=== PATIENT | female | born 1975 | race Caucasian/White ===

== ENCOUNTER 2016-11-10 13:58 | Emergency (ER) | payer MEDICAID ==
[~2016-11-10] VITALS: Ht 162.6 cm; Wt 94.8 kg
[2016-11-10 17:45] VITALS: BP 136/94
== END 2016-11-10 17:45 | disposition home or self-care (01) ==
LOC: ED 13:58
DX: B34.9 Viral infection, unspecified (principal)

== ENCOUNTER 2017-02-07 18:28 | Emergency (ER) | payer SELFPAY ==
[~2017-02-07] VITALS: Ht 162.6 cm; Wt 94.8 kg
[2017-02-07 21:10] VITALS: BP 137/90
== END 2017-02-07 21:10 | disposition home or self-care (01) ==
LOC: ED 18:28
DX: K21.9 Gastro-esophageal reflux disease without esophagitis (principal)

== ENCOUNTER 2018-10-14 12:37 | Emergency (ER) | payer MEDICAID ==
[~2018-10-14] VITALS: Ht 162.6 cm; Wt 95.3 kg
[2018-10-14 12:44] VITALS: Ht 162.6 cm; Wt 95.3 kg
[2018-10-14 16:24] LABS: BASOPHIL % 0 % (0-2); PLATELET COUNT 204 x10^3mcL (130-400); RED CELL DISTRIBUTION WIDTH 13.9 % (11.5-14.5)
[2018-10-14 16:41] LABS: CALCIUM 8.3 mg/dL (8.5-10.1); CARBON DIOXIDE 23.8 mmol/L (21-32); CHLORIDE SERUM 104 mmol/L (98-107); CREATININE SERUM 0.7 mg/dL (0.6-1.0); GFR1 > 60 mL/min; GLUCOSE SERUM 132 mg/dL (74-106); POTASSIUM SERUM 3.3 mmol/L (3.5-5.1); SODIUM SERUM 139 mmol/L (136-145)
[2018-10-14 16:45] LABS: ALT/SGPT 56 U/L (14-59); AST/SGOT 32 U/L (15-37); LIPASE 160 IU/L (73-393)
[2018-10-14 16:50] LABS: ALBUMIN 3.1 g/dL (3.4-5.0)
[2018-10-14 17:06] LABS: ALKALINE PHOSPHATASE 73 U/L (46-116); BILIRUBIN TOTAL 0.2 mg/dL (0.20-1.00); TOTAL PROTEIN, SERUM 7.7 g/dL (6.4-8.2)
[2018-10-14 17:18] LABS: microscopic required? YES; urine erythrocyte NEGATIVE (NEGATIVE)
[2018-10-14 18:09] VITALS: BP 140/87
== END 2018-10-14 18:09 | disposition home or self-care (01) ==
LOC: ED 12:37
PROVIDERS: Emergency Medicine
DX: K80.20 Calculus of gallbladder without cholecystitis without obstruction (principal); I10 Essential (primary) hypertension; Z98.890 Other specified postprocedural states; Z88.5 Allergy status to narcotic agent
CPT/HCPCS: J1885; J2405; J7030; Q0092

== ENCOUNTER 2019-06-14 19:51 | Emergency (ER) | payer MEDICAID ==
[~2019-06-14] VITALS: Ht 162.6 cm; Wt 80.7 kg
[2019-06-14 20:31] VITALS: Ht 162.6 cm; Wt 80.7 kg
[2019-06-14 22:39] VITALS: BP 126/82
== END 2019-06-14 22:39 | disposition home or self-care (01) ==
LOC: ED 19:51
DX: M54.5 Low back pain (principal); I10 Essential (primary) hypertension; Z88.5 Allergy status to narcotic agent; Z98.890 Other specified postprocedural states
CPT/HCPCS: J1885

== ENCOUNTER 2019-12-15 09:29 | Emergency (ER) | payer MEDICAID ==
[~2019-12-15] VITALS: Ht 162.6 cm; Wt 87.1 kg
[2019-12-15 09:46] VITALS: Ht 162.6 cm; Wt 87.1 kg
[2019-12-15 10:40] VITALS: BP 141/87
== END 2019-12-15 10:40 | disposition home or self-care (01) ==
LOC: ED 09:29
DX: R42 Dizziness and giddiness (principal); R11.2 Nausea with vomiting, unspecified; R51 Headache; H93.19 Tinnitus, unspecified ear; I10 Essential (primary) hypertension; Z98.890 Other specified postprocedural states; Z88.5 Allergy status to narcotic agent